=== PATIENT | female | born 1970 | race African-American/Black ===

== ENCOUNTER 2024-04-19 16:15 | Emergency (ER) | payer MEDICARE ==
[~2024-04-19] VITALS: Ht 165.1 cm; Wt 88.6 kg
[~2024-04-19 16:15] MED LIST: SILVADENE20 GM TOP; ULTRAM50 MG PO
[2024-04-19 16:18] VITALS: PULSE 80; RESP 18; TEMP 98.8; O2SAT 97
[2024-04-19] MEDS ORDERED: ONDANSETRON ODT4 MG PO (17:18)
[2024-04-19] MEDS ORDERED: MIDODRINE HCL5 MG PO (17:18)
[2024-04-19] MEDS ORDERED: OMEPRAZOLE40 MG PO (17:18)
[2024-04-19] MEDS ORDERED: CRESTOR40 MG (17:18)
[2024-04-19] MEDS ORDERED: RENVELA0.8 GM PO (17:18)
[2024-04-19] MEDS ORDERED: PLAVIX75 MG PO (17:18)
[2024-04-19] MEDS ORDERED: ZETIA10 MG PO (17:18)
[2024-04-19] MEDS ORDERED: TRESIBA100 UNIT/1 (17:18)
[2024-04-19] MEDS ORDERED: BIKTARVY 30-121 EACH (17:18)
[2024-04-19] MEDS ORDERED: TAMIFLU75 MG PO (17:37)
== END 2024-04-19 18:00 | disposition home or self-care (01) ==
LOC: FSED 16:26
DX: R50.9 Fever, unspecified (principal); R05.9 Cough, unspecified; B34.9 Viral infection, unspecified; I12.0 Hypertensive chronic kidney disease with stage 5 chronic kidney disease or end stage renal disease; E11.22 Type 2 diabetes mellitus with diabetic chronic kidney disease; N18.6 End stage renal disease; Z99.2 Dependence on renal dialysis; E78.5 Hyperlipidemia, unspecified; Z11.52 Encounter for screening for COVID-19; Z95.1 Presence of aortocoronary bypass graft
CPT/HCPCS: 0223U; 71046; 83518; 87400; 99284